=== PATIENT | female | born 1970 | race Caucasian/White ===

== ENCOUNTER → 2021-04-11 | Outpatient (CLI) | payer BC, OTHER | LOC: RAD 17:38 | DX: M79.605 Pain in left leg (principal); D50.9 Iron deficiency anemia, unspecified | CPT/HCPCS: 73590 ==

== ENCOUNTER 2021-11-16 15:24 | Emergency (ER) | payer OTHER ==
[~2021-11-16 15:24] MED LIST: ANAPROX DS550 MG PO; DEXTROAMP-AMPHE20 MG PO; HYDROCODON-ACE1 EAC2 PO; LEVOTHYROXINE88 MC1 PO; LEXAPRO10 MG PO; LEXAPRO20 MG PO; POLYETHYLENE G500 G3 MC; REMERON30 M1 PO
[2021-11-16 16:23] LABS: RED BLOOD COUNT 4.11 M/UL (4.00-5.10); WHITE BLOOD COUNT 11.9 K/UL (4.5-11.0)
[2021-11-16 16:44] LABS: BUN/CREATININE RATIO 22 (0-10)
[2021-11-16] MEDS ORDERED: CEFUROXIME500 MG PO (19:37)
== END 2021-11-16 20:40 | disposition home or self-care (01) ==
LOC: ER1 15:24
PROVIDERS: Physician Assistant
DX: U07.1 COVID-19 (principal); N39.0 Urinary tract infection, site not specified; R10.9 Unspecified abdominal pain; Z90.710 Acquired absence of both cervix and uterus
CPT/HCPCS: 80053; 81001; 83605; 83690; 85025; 87040; 87086; 96374; 96375; 99284; J0696; J2270; J2405; Q9967; U0002

== ENCOUNTER 2021-11-23 10:07 | Inpatient (IN) | payer OTHER ==
[~2021-11-23] VITALS: Ht 162.6 cm; Wt 83.5 kg
[~2021-11-23 10:07] MED LIST changes: +CEFUROXIME500 MG PO
[2021-11-23 11:58] LABS: HEMOGLOBIN 11.9 gm/dl (12.3-15.3); RED BLOOD COUNT 3.86 M/UL (4.00-5.10); WHITE BLOOD COUNT 18.9 K/UL (4.5-11.0)
[2021-11-23] MEDS ORDERED: DITROPAN 5 MG TA5 MG PO (17:11)
[2021-11-23] MEDS ORDERED: IBUPROFEN200 M1 PO (17:12)
[2021-11-24 04:57] LABS: HEMOGLOBIN 10.3 gm/dl (12.3-15.3); WHITE BLOOD COUNT 14.2 K/UL (4.5-11.0)
[2021-11-24 05:02] LABS: RED BLOOD COUNT 3.43 M/UL (4.00-5.10)
[2021-11-25 05:42] LABS: HEMOGLOBIN 10.6 gm/dl (12.3-15.3); RED BLOOD COUNT 3.5 M/UL (4.00-5.10); WHITE BLOOD COUNT 14.2 K/UL (4.5-11.0)
[2021-11-26 06:48] LABS: HEMOGLOBIN 10.1 gm/dl (12.3-15.3); RED BLOOD COUNT 3.41 M/UL (4.00-5.10)
[2021-11-26 06:49] LABS: WHITE BLOOD COUNT 10.2 K/UL (4.5-11.0)
--- NOTE | 2021-11-26 09:43 | NUR ---
PAGED AT THIS TIME.
--- NOTE | 2021-11-26 09:52 | NUR ---
MADE AWARE OF CHANGE IN PATIENT SYMTPOMS AND THAT BOWEL SOUNDS WERE UNABLE TO BE AUSCULATED.
--- NOTE | 2021-11-27 04:45 | NUR ---
PATIENT WITH ONLY 225 DARK YL URINE OUT SINCE 1030. PATIENT BLADDER SCANNED WITH 2 RNS PRESENT. MULTIPLE SCANS DONE WITH THE LARGEST AMOUNT AT 197. NOT ENOUGH TO JUSTIFY CALL TO MD FOR POSSIBLE FC PLACEMENT. INFORMED PATIENT THAT SHE STILL HAD A FEW HOURS UNTIL THE 8 HOURS/360CC LIMIT REACHED. GOOD UNDERSTANDING NOTED. WILL FOLLOW UP.
[2021-11-27 08:55] LABS: RED BLOOD COUNT 3.27 M/UL (4.00-5.10)
[2021-11-27 09:03] LABS: WHITE BLOOD COUNT 17.5 K/UL (4.5-11.0)
[2021-11-27 09:15] LABS: BUN/CREATININE RATIO 15 (0-10)
[2021-11-28 07:18] LABS: HEMOGLOBIN 9.8 gm/dl (12.3-15.3); RED BLOOD COUNT 3.3 M/UL (4.00-5.10); WHITE BLOOD COUNT 16.7 K/UL (4.5-11.0)
== END 2021-11-28 16:25 | disposition short-term general hospital (02) | DRG 392 ==
LOC: ER1 10:07 → CDU 15:17 → M/S 21:13
PROVIDERS: Nurse Practitioner; Obstetrics & Gynecology; ADMIT Obstetrics & Gynecology
DX: K52.9 Noninfective gastroenteritis and colitis, unspecified (principal); K56.7 Ileus, unspecified; N73.9 Female pelvic inflammatory disease, unspecified; E66.9 Obesity, unspecified; K59.00 Constipation, unspecified; R50.82 Postprocedural fever; Z88.0 Allergy status to penicillin; Z88.6 Allergy status to analgesic agent; Z90.49 Acquired absence of other specified parts of digestive tract; Z98.890 Other specified postprocedural states; Z68.33 Body mass index [BMI] 33.0-33.9, adult
CPT/HCPCS: 0240U; 36415; 71045; 74018; 80053; 81001; 82150; 82550; 82553; 82962; 83605; 83690; 83874; 84484; 85025; 85652; 86140; 87040; 87086; 93005; 96372; 96374; 96375; 96376; 99285; G0378; J0696; J1170; J1650; J1956; J2270; J2405; J2550; J7030; J7070; J7120; Q9963; Q9967